=== PATIENT | female | born 1965 | race Caucasian/White ===

== ENCOUNTER 2016-05-09 09:52 | Emergency (ER) | payer OTHER ==
[~2016-05-09] VITALS: Ht 172.7 cm; Wt 61.2 kg
--- NOTE | 2016-05-09 10:17 | ED NECK/BACK PAIN COMPLAINT ---
History of Present Illness General Chief Complaint: Low Back Pain/Injury Stated Complaint: LBP Source: patient Exam Limitations: no limitations Vital Signs & Intake/Output Vital Signs & Intake/Output Vital Signs Date Time Temp Pulse Resp B/P Pulse O2 O2 Flow FiO2 Ox Delivery Rate 05/09 0955 97.5 82 18 115/74 99 Room Air Allergies Coded Allergies: ampicillin (Mild, RASH 05/09/16) latex (Mild, RASH 05/09/16) propoxyphene (From DARVOCET-N) (Mild, RASH 05/09/16) acetaminophen (From VICODIN) (GI UPSET 05/09/16) hydrocodone (From VICODIN) (GI UPSET 05/09/16) Uncoded Allergies: NARCOTICS (NAUSEA VOMITING 02/04/15) Reconcile Medications Cyclobenzaprine HCl 5 MG TABLET 1 TAB PO TIDPRN PRN muscle spasms Escitalopram Oxalate (Lexapro) 20 MG TABLET 1 TAB PO DAILY MENTAL HEALTH ( Reported) Methylprednisolone. (Medrol) 4 MG TAB.DS.PK 1 DP PO AD back pain/sciatica 6 on day 1 then reduce by one tablet daily until gone Tylenol With Codeine (Tylenol With Codeine #3 Tablet) 300 MG-30 MG TABLET 1 TAB PO Q6HR PRN PAIN Triage Note: 51 Y/O FEMALE C/O "A KNOT" IN L HIP RADIATING INTO L THIGH; ONSET 4 DAYS AGO AND CONSTANT SINCE ONSET. AMBULATORY WITH STEADY GAIT. TOOK EXEDRIN ARTHRITIS 1 HOUR AGO WITH NO RELIEF. Triage Nurses Notes Reviewed? yes Onset: Gradual Duration: day(s): (4) Timing: no prior history Quality/Severity: moderate, burning Location: lumbar spine Radiation: buttocks Method of Injury: unknown Loss of Consciousness: no loss of consciousness Modifying Factors: immobilization HPI: Patient is a 51-year-old female presenting to the emergency department with chief complaint of left low back pain that radiates into the buttock this been going on for the past 4-5 days. Symptoms are worse with certain positions. She describes the pain as achy throbbing and intermittently burning in nature. Denies any rashes. Denies any specific trauma. No lower extremity weakness. Denies any abdominal pain. No urinary frequency urgency or dysuria. (MICH VILLAREAL,KAREN) Past History Travel History Traveled to [place] past 21 day No Medical History Any Pertinent Medical History? see below for history Neurological: NONE EENT: NONE Cardiovascular: NONE Respiratory: NONE Gastrointestinal: NONE Hepatic: NONE Renal: NONE Musculoskeletal: NONE Psychiatric: NONE Endocrine: NONE Blood Disorders: NONE Cancer(s): NONE TELECOMMUNICATIONS CLERK/Reproductive: NONE Surgical History Surgical History: non-contributory Psychosocial History What is your primary language Kazakh Tobacco Use: Current Daily Use Daily Tobacco Use Amount/Type: => 5 Cigarettes daily Family History Hx Contributory? No (KAREN WATERMAN) Review of Systems Review of Systems Constitutional: Reports: no symptoms. Comments Review of systems: See HPI, All other systems negative. Constitutional, no chills fever or weight loss HEENT: No visual changes no sore throat no congestion Cardiovascular: No chest pain ,palpitation , orthopnea or ankle swelling Skin, no jaundice no rashes Respiratory: No dyspnea cough sputum or hemoptysis GI: No nausea no vomiting : No dysuria No hematuria Muscle skeletal: no neck pain, Neurologic: No numbness no confusion Psych: No stress anxiety or depression,. Heme/endocrine: No bruising no bleeding no polyuria or polydipsia Immunology: No splenectomy or history of AIDS (KAREN WATERMAN) Physical Exam Physical Exam General Appearance: well developed/nourished, no apparent distress, alert, awake , comfortable Neck: normal inspection, supple, full range of motion Comments: Well-developed well-nourished person in no acute distress HEENT: Nose is atraumatic. Neck: Supple, no lymphadenopathy, normal range of motion without pain or tenderness Back: Tentative outpatient over the last si joint. Near full range of motion somewhat limited secondary to pain. Cardiovascular: Regular rate and rhythms no murmurs rubs or gallops, normal JVP Respiratory: No respiratory distress.breath sounds clear to auscultation bilaterally Extremity: No edema Neuro: Alert oriented x3, motor sensory normal, patellar reflexes are 2+ bilaterally. Skin: No appreciable rash on exposed skin, skin is warm and dry. Psych: Mood and affect is normal, memory and judgment is normal. (KAREN WATERMAN) Progress Differential Diagnosis: cauda equina syn, herniated disc, myofascial strain, pyelo/UTI, sciatica, T/L spine injury Plan of Care: Orders Procedure Date/time Status XRY-LUMBOSACRAL SPINE 4 VIEWS 05/09 1009 Active Diagnostic Imaging: Viewed by Me: Radiology Read. Discussed w/RAD: Radiology Read. Radiology Impression: PATIENT: NEIL HANSON PRESENT AGE: 51 PATIENT ACCOUNT NO: [id number] : 65 LOCATION: [facility] ORDERING PHYSICIAN: KAREN VILLAREAL SERVICE DATE: 05/09/16 EXAM TYPE: RAD - XRY-LUMBOSACRAL SPINE 4 VIEWS EXAMINATION: XR LUMBOSACRAL SPINE CLINICAL INFORMATION: 51-year-old female patient presenting with back pain. Evaluate for a compression fracture. COMPARISON: PA and lateral chest x-ray of 10/10/2008 TECHNIQUE: 4 views were obtained of the lumbar spine including coned AP and lateral views. FINDINGS: The bones are normal in mineralization and architecture. No scoliotic curvature is identified. The lumbar lordosis is mildly exaggerated. There is minimal with wedge deformities involving the L2 and L3 vertebral bodies with associated spondylitic changes. There is mild to moderate disc space narrowing at the L4-L5 level. There appears to be degenerative facet joint arthropathy at the L4-L5 level as well. The posterior elements are otherwise intact. The sacroiliac joints are unremarkable. IMPRESSION: 1. Mild wedge deformities of the L2 and L3 vertebral bodies of indeterminate age. If there is significant suspicion of a compression fracture, further evaluation with MRI is recommended. 2. Degenerative changes at the L4-L5 level as described above. Comments: Patient feeling suddenly improved after IM Toradol. This and has good mobility, walking without difficulty. Patient will be discharged and follow-up with orthopedics. neuro intact. (MICH VILLAREAL,KAREN) Departure Departure Time of Disposition: 1117 Disposition: HOME OR SELF CARE Condition: Stable Clinical Impression Primary Impression: Back pain Qualifiers: Back pain location: low back pain Chronicity: acute Back pain laterality: left Sciatica presence: with sciatica Sciatica laterality: sciatica of left side Qualified Code: M54.42 - Lumbago with sciatica, left side Referrals: SHIRA AGUIRRE MD (PCP/Family) Referred to [facility] as new patient No Additional Instructions: Follow-up with your primary care physician call to make an appointment. Take anti-inflammatory and pain medication as prescribed. Avoid heavy lifting. Return for worsening symptoms or concerns. Also follow-up with orthopedics she will likely need MRI of the low back. PATIENT: NEIL HANSON PRESENT AGE: 51 PATIENT ACCOUNT NO: [id number] : 65 LOCATION: [facility] ORDERING PHYSICIAN: KAREN VILLAREAL SERVICE DATE: 05/09/16 EXAM TYPE: RAD - XRY-LUMBOSACRAL SPINE 4 VIEWS EXAMINATION: XR LUMBOSACRAL SPINE CLINICAL INFORMATION: 51-year-old female patient presenting with back pain. Evaluate for a compression fracture. COMPARISON: PA and lateral chest x-ray of 10/10/2008 TECHNIQUE: 4 views were obtained of the lumbar spine including coned AP and lateral views. FINDINGS: The bones are normal in mineralization and architecture. No scoliotic curvature is identified. The lumbar lordosis is mildly exaggerated. There is minimal with wedge deformities involving the L2 and L3 vertebral bodies with associated spondylitic changes. There is mild to moderate disc space narrowing at the L4-L5 level. There appears to be degenerative facet joint arthropathy at the L4-L5 level as well. The posterior elements are otherwise intact. The sacroiliac joints are unremarkable. IMPRESSION: 1. Mild wedge deformities of the L2 and L3 vertebral bodies of indeterminate age. If there is significant suspicion of a compression fracture, further evaluation with MRI is recommended. 2. Degenerative changes at the L4-L5 level as described above. Departure Forms: Customer Survey General Discharge Information Prescriptions: Current Visit Scripts Methylprednisolone. (Medrol) 1 DP PO AD #1 DP 6 on day 1 then reduce by one tablet daily until gone Cyclobenzaprine HCl 1 TAB PO TIDPRN PRN muscle spasms #15 TAB Tylenol With Codeine (Tylenol With Codeine #3 Tablet) 1 TAB PO Q6HR PRN PAIN #10 TAB (KAREN WATERMAN) PA/MANAGER CANCER Co-Sign Statement Statement: ED Attending supervision documentation- [] I saw and evaluated the patient. I have also reviewed all the pertinent lab results and diagnostic results. I agree with the findings and the plan of care as documented in the PA's/MANAGER CANCER's documentation. x I have reviewed the ED Record and agree with the PA's/MANAGER CANCER's documentation. [] Additions or exceptions (if any) to the PAs/MANAGER CANCER's note and plan are summarized below: [] (COURTNEY GREEN,ADELE)
[2016-05-09] MEDS ORDERED: MEDROL4 M2 PO (10:33)
[2016-05-09] MEDS ORDERED: CYCLOBENZAPRINE5 M2 PO (10:33)
[2016-05-09] MEDS ORDERED: LEXAPRO20 M1 PO (10:37)
--- NOTE | 2016-05-09 11:17 | RADIOLOGY REPORT ---
EXAMINATION: XR LUMBOSACRAL SPINE CLINICAL INFORMATION: 51-year-old female patient presenting with back pain. Evaluate for a compression fracture. COMPARISON: PA and lateral chest x-ray of 10/10/2008 TECHNIQUE: 4 views were obtained of the lumbar spine including coned AP and lateral views. FINDINGS: The bones are normal in mineralization and architecture. No scoliotic curvature is identified. The lumbar lordosis is mildly exaggerated. There is minimal with wedge deformities involving the L2 and L3 vertebral bodies with associated spondylitic changes. There is mild to moderate disc space narrowing at the L4-L5 level. There appears to be degenerative facet joint arthropathy at the L4-L5 level as well. The posterior elements are otherwise intact. The sacroiliac joints are unremarkable. IMPRESSION: 1. Mild wedge deformities of the L2 and L3 vertebral bodies of indeterminate age. If there is significant suspicion of a compression fracture, further evaluation with MRI is recommended. 2. Degenerative changes at the L4-L5 level as described above.
[2016-05-09] MEDS ORDERED: TYLENOL WITH C1 EACH PO (11:21)
[2016-05-09 11:36] VITALS: BP 120/80
== END 2016-05-09 11:36 ==
LOC: ERH 09:52
DX: M54.5 Low back pain (principal)
CPT/HCPCS: 72110; 96372; J1885

== ENCOUNTER 2016-08-05 15:00 | Emergency (ER) | payer OTHER ==
[~2016-08-05] VITALS: Ht 172.7 cm; Wt 68.0 kg
[~2016-08-05 15:00] MED LIST: CYCLOBENZAPRINE5 M2 PO; LEXAPRO20 M1 PO; MEDROL4 M2 PO; TYLENOL WITH C1 EACH PO
--- NOTE | 2016-08-05 16:07 | ULTRASOUND REPORT ---
EXAMINATION: US DUPLEX EXTREMITY VEINS, LEFT CLINICAL INFORMATION: Left lower extremity edema and pain. COMPARISON: None. TECHNIQUE: Color-flow triplex imaging with spectral analysis and compression Doppler were performed on the left lower extremity. FINDINGS: Multiple grayscale, color Doppler and spectral Doppler images of the left lower extremity veins demonstrate occlusive thrombus within the left anterior tibial veins. The remaining veins of the left lower extremity are patent. Respiratory variation, normal compression and flow are noted within the common femoral vein, femoral vein, profunda femoral vein, popliteal vein and mid calf peroneal and posterior tibial venous segments. No Lester's cyst. IMPRESSION: Deep venous thrombosis of the left lower extremity, with occlusive thrombus identified within the left anterior tibial vein. The remaining imaged veins of the left lower extremity are patent. This critical result was discussed with Dr. Georgi Ziegler at 3:57 PM on 08/05/2016 and it was ascertained that the content and urgency of the report was understood at the time of direct communication.
[2016-08-05 16:29] LABS: ABSOLUTE BASOPHIL COUNT 0 /CUMM (0.0-0.2); ABSOLUTE EOSINOPHIL COUNT 0.1 /CUMM (0.0-0.7); ABSOLUTE LYMPH COUNT 2.1 /CUMM (1.2-3.4); ABSOLUTE MONOCYTE COUNT 0.3 /CUMM (0.10-0.60); BASOPHIL % 0.4 % (0.0-2.0); GRANULOCYTE % 61.5 % (42.2-75.2); HEMATOCRIT 41.3 % (37-47); MEAN CORPUSCULAR HGB 30.3 PG (27.0-31.0); MEAN CORPUSCULAR HGB CONC 33.4 G/DL (33.0-37.0); MEAN CORPUSCULAR VOLUME 90.7 FL (81.0-99.0); MEAN PLATELET VOLUME 7.9 FL (7.4-10.4); PLATELET COUNT 236 /CUMM (130-400); RBC DISTRIBUTION WIDTH 13.9 % (11.5-14.5); RED BLOOD CELL CT 4.55 /CUMM (4.20-5.40); WHITE BLOOD CELL COUNT 6.4 /CUMM (4.8-10.8)
[2016-08-05] MEDS ORDERED: CLONAZEPAM0.5 M2 PO (16:31)
[2016-08-05] MEDS ORDERED: ELIQUIS5 M1 PO (16:40)
--- NOTE | 2016-08-05 16:43 | ED UPPER/LOWER EXTREMITY COMPL ---
History of Present Illness General Chief Complaint: General Adult Stated Complaint: ?DVT Source: patient Exam Limitations: no limitations Vital Signs & Intake/Output Vital Signs & Intake/Output Vital Signs Date Time Temp Pulse Resp B/P Pulse O2 O2 Flow FiO2 Ox Delivery Rate 08/05 1706 97.9 59 16 128/67 98 Room Air 08/05 1511 98.8 73 16 158/95 100 Room Air Allergies Coded Allergies: ampicillin (Mild, RASH 05/09/16) latex (Mild, RASH 05/09/16) propoxyphene (From DARVOCET-N) (Mild, RASH 05/09/16) hydrocodone (From VICODIN) (GI UPSET 05/09/16) Uncoded Allergies: NARCOTICS (NAUSEA VOMITING 02/04/15) Reconcile Medications Apixaban (Eliquis) 5 MG TABLET 2 TAB PO BID dvt Apixaban (Eliquis) 5 MG TABLET 1 TAB PO BID dvt Clonazepam 0.5 MG TABLET 0.5 TAB PO PRN ANXIETY (Reported) Escitalopram Oxalate (Lexapro) 20 MG TABLET 1 TAB PO DAILY MENTAL HEALTH ( Reported) Triage Note: PT TO ED FOR POSSIBLE DVT, PT STATING SHE HAS A HX OF THE SAME "AND IT FEELS EXACTLY THE SAME." DENIES CP, SOB, WRAY. NO REDNESS, TENDERNESS OR SWELLING NOTED. Triage Nurses Notes Reviewed? yes HPI: Ms. Mckinnon is a 51 yo f w/ PMH DVT (s/p bilateral bunionectomy), anxiety, depression, and a recent dx of thyorid nodules and liver masses w/ associated portal HTN presenting to the emergency department for L leg pain. She states she has pain along the posterior lateral area of the leg that is linear in fashion. The pain is worse with palpation. She does not appreciate any unilateral swelling. She states that this pain feels very similar to her previous DVT a few years ago. Redness of breath, dyspnea upon exertion, fever, chills, abdominal pain, nausea, vomiting, diarrhea. Patient denies any recent travel or recent surgeries. She states she has had several new diagnoses in the past 2 weeks including emphysema, thyroid nodules and liver masses. She now patient MRI performed of her abdomen and pelvis which she was hoping we would be able to print out a copy of the MRI report as she was only able to read part of it with her physician. Patient denies any recent surgeries, prolonged immobilization, or exogenous estrogen use. There's been no trauma to the area. (RADHAMES BURRELL MD) Past History Travel History Traveled to [place] past 21 day No Medical History Any Pertinent Medical History? see below for history Neurological: NONE EENT: NONE Cardiovascular: NONE Respiratory: emphysema Gastrointestinal: liver nodules and portal HTN Hepatic: NONE Renal: NONE Musculoskeletal: NONE Psychiatric: anxiety, depression Endocrine: thyroid nodules Blood Disorders: DVT Cancer(s): NONE ELIGIBILITY EXAMINER/Reproductive: NONE Surgical History Surgical History: appendectomy, bilateral bunionectomy, 2 DNC Psychosocial History What is your primary language Czech Tobacco Use: Current Daily Use Daily Tobacco Use Amount/Type: =< 4 Cigarettes daily ETOH Use: denies use Illicit Drug Use: denies illicit drug use Family History Hx Contributory? Yes (RADHAMES BURRELL MD) Review of Systems Review of Systems Constitutional: Reports: no symptoms. EENTM: Reports: no symptoms. Respiratory: Reports: no symptoms. Cardiovascular: Reports: no symptoms. Gastrointestinal/Abdominal: Reports: no symptoms. Genitourinary: Reports: no symptoms. Musculoskeletal: Reports: muscle pain. Skin: Reports: no symptoms. Neurological/Psychological: Reports: no symptoms. Hematologic/Endocrine: Reports: no symptoms. Immunological: Reports: no symptoms. All Other Systems: Reviewed and Negative (RADHAMES BURRELL MD) Physical Exam Physical Exam General Appearance: well developed/nourished, no apparent distress, alert, awake Head: atraumatic, normal appearance Eyes: Bilateral: PERRL, EOMI. Ears, Nose, Throat: normal pharynx, normal ENT inspection, hearing grossly normal Neck: normal inspection, supple Cardiovascular/Respiratory: normal breath sounds, regular rate/rhythm Gastrointestinal: soft nontender nondistended abdomen. Back: normal inspection, normal range of motion Leg Left: normal range of motion, normal inspection, pain over the lateral posterior lower calf, no edema or swelling Leg Right: normal range of motion, normal inspection, no edema or swelling Neurologic/Tendon: normal sensation, normal motor functions Skin: intact, normal color, warm/dry (RADHAMES BURRELL MD) Progress Differential Diagnosis: cellulitis, compartment syndrome, DVT, sprain Plan of Care: Orders Procedure Date/time Status CBC WITHOUT DIFFERENTIAL 08/05 161 Complete BASIC METABOLIC PANEL 08/05 161 Complete PROTHROMBIN TIME 08/05 1610 Complete Laboratory Tests 08/05/16 1617: Anion Gap 8, Estimated GFR > 60, BUN/Creatinine Ratio 24.3, Glucose 80, Calcium 10.4 H, PT 11.4, INR 1.09, CBC w Diff NO MAN DIFF REQ, RBC 4.55, MCV 90.7, MCH 30.3, RDW 13.9, MPV 7.9, Gran % 61.5, Lymphocytes % 32.4, Monocytes % 4.7, Eosinophils % 1.0, Basophils % 0.4, Absolute Granulocytes 4.0, Absolute Lymphocytes 2.1, Absolute Monocytes 0.3, Absolute Eosinophils 0.1, Absolute Basophils 0, PUBS MCHC 33.4 Patient is an otherwise well-appearing 51 years old. She is somewhat anxious given her recent diagnoses of thyroid nodule liver mass as well as emphysema. Skin is intact dry. There is no erythema warmth or swelling to suggest cellulitis. Both compartments are soft with out any evidence of compartment syndrome. There is some superficial tenderness to palpation over the posterior lateral calf which the patient states she can feel that they next tender. No trauma or injuries to suggest fracture or sprain. Ultrasound was ordered from triage to assess for possible DVT and the patient's history of previous DVTs. Ultrasound is positive for left DVT. Will obtain basic labs assess renal function and likely discharge the patient home with by mouth anticoagulation. Patient had denied shortness of breath or chest pain. Patient was ambulated around the department with a pulse ox to assess for hypoxia or increase in tachycardia. Patient's heart rate remained mid 80s the entire time with no drop pulse ox (remained 96 % entire time). Given the patient's lack of subjective shortness of breath or chest pain with a normal ambulatory pulse ox and heart rate will treat as deep simple DVT only. Patient given Eliquis 10 mg BID by mouth for the first 7 days secondary prescription for 5 mg BID by mouth for 1 month. Patient is instructed to follow-up with her primary care doctor for any further prescriptions as well as likely a repeat ultrasound in several months to confirm clearance of the clot burden. Patient given return precautions should she develop chest pain, shortness of breath, or dyspnea upon exertion. (RADHAMES BURRELL MD) Diagnostic Imaging: Viewed by Me: Ultrasound. Discussed w/RAD: Ultrasound. Radiology Impression: + L lower leg DVT (RADHAMES BURRELL MD) Departure Departure Time of Disposition: 1700 Disposition: HOME OR SELF CARE Condition: Stable Clinical Impression Primary Impression: Left leg DVT Qualifiers: Affected thrombotic vein of extremity: tibial Chronicity: acute Qualified Code: I82.442 - Acute embolism and thrombosis of left tibial vein Secondary Impressions: Pain in left lower leg Ruled Out Impressions: Pain in left leg Referrals: TIMOTHY GREEN,SHIRA (PCP/Family) Additional Instructions: Please take the full course of Eliquis as prescribed. You will take Eliquis 10 mg twice a day for the first 10 days then followed by 5 mg twice a day. It is important that he follow up with your primary care doctor for an evaluation and secondary ultrasound after a few months of anticoagulation for resolution of the clot burden. If you develop chest pain, shortness of breath, trouble breathing/ or chest pain when you exert yourself, please return to the emergency department for further evaluation. Departure Forms: Customer Survey General Discharge Information Prescriptions: Current Visit Scripts Apixaban (Eliquis) 2 TAB PO BID 7 Days Apixaban (Eliquis) 1 TAB PO BID #60 TAB (RADHAMES BURRELL MD) PA/NEWSPAPER COLUMNIST Co-Sign Statement Statement: ED Attending supervision documentation- [] I saw and evaluated the patient. I have also reviewed all the pertinent lab results and diagnostic results. I agree with the findings and the plan of care as documented in the PA's/NEWSPAPER COLUMNIST's documentation. [] I have reviewed the ED Record and agree with the PA's/NEWSPAPER COLUMNIST's documentation. [] Additions or exceptions (if any) to the PAs/NEWSPAPER COLUMNIST's note and plan are summarized below: [] Resident Co-Sign Statement Statement: ED Attending supervision documentation- x I saw and evaluated the patient. I have also reviewed all the pertinent lab results and diagnostic results. I agree with the findings and the plan of care as documented in the Resident's documentation. [] I have reviewed the ED Record and agree with the Resident's documentation. [] Additions or exceptions (if any) to the Resident's note and plan are summarized below: [] (ADELE VALDEZ MD)
[2016-08-05 16:46] LABS: PT 11.4 SEC (9.4-12.5)
[2016-08-05 17:06] VITALS: BP 128/67
== END 2016-08-05 17:07 ==
LOC: ERH 15:00
PROVIDERS: Emergency Medicine
DX: I82.402 Acute embolism and thrombosis of unspecified deep veins of left lower extremity (principal)